=== PATIENT | female | born 1955 | race Caucasian/White ===

== ENCOUNTER → 2021-05-22 | Outpatient (CLI) | payer BC | LOC: DX 09:33 | PROVIDERS: ATTEND Internal Medicine | DX: K21.9 Gastro-esophageal reflux disease without esophagitis (principal) | CPT/HCPCS: 74246; U0002 ==

== ENCOUNTER 2021-07-20 14:11 | Emergency (ER) | payer BC ==
[~2021-07-20] VITALS: Ht 172.7 cm; Wt 95.3 kg
[2021-07-20] MEDS ORDERED: CASIRIVIMAB/IMDEVIMAB 10 ML in SODIUM CHLORIDE 0.9% 100 ML IV ONE (14:30)
[2021-07-20 15:37] VITALS: BP 146/90
== END 2021-07-20 15:38 | disposition home or self-care (01) ==
LOC: ER 14:14
DX: R05 Cough (principal); U07.1 COVID-19; I10 Essential (primary) hypertension
CPT/HCPCS: 99283; J7050